=== PATIENT | male | born 1980 | race Caucasian/White ===

== ENCOUNTER 2022-06-06 21:30 | Emergency (ER) | payer OTHER ==
[~2022-06-06] VITALS: Ht 190.5 cm; Wt 118.2 kg
[2022-06-06 21:57] VITALS: TEMP 98.6
[2022-06-06 23:11] LABS: BASO # 0.1 K/mm3 (0.0-0.2); BASO % 0.6 % (0.0-2.0); EOS # 0.3 K/mm3 (0.0-0.7); EOS % 2.3 % (0.0-4.0); GRAN # 7.7 K/mm3 (1.4-6.5); HEMATOCRIT 45.3 % (42.0-52.0); HEMOGLOBIN 15.8 g/dl (13.5-18.0); LYMPH # 2.3 K/mm3 (1.2-3.4); LYMPH % 20.6 % (20.0-51.0); MEAN CELL VOLUME 87 fl (80.0-100.0); MEAN CORPUSCULAR HEMOGLOBIN 30 pg (27-31); MEAN CORPUSCULAR HGB CONC 35 g/dl (33.0-37.0); MEAN PLATELET VOLUME 9.7 fl (7.4-10.4); MONO # 0.9 K/mm3 (0.1-0.6); MONO % 8.1 % (1.7-9.3); PLATELET COUNT 246 K/mm3 (130-400); RED BLOOD COUNT 5.21 M/mm3 (4.20-5.60); REDCELL DISTRIBUTION WIDTH-CV 13.2 % (11.5-14.5)
[2022-06-06 23:32] LABS: ALBUMIN 4.1 gm/dL (3.5-5.0); BILIRUBIN,TOTAL 0.3 mg/dL (0.2-1.2); CALCIUM 8.9 mg/dL (8.4-10.2); CREATININE, serum 1.15 mg/dL (0.72-1.25); TOTAL PROTEIN 7.2 gm/dL (6.2-8.1)
[2022-06-06 23:37] LABS: TROPONIN-I 0.023 ng/mL (0.00-0.033)
[2022-06-06 23:52] VITALS: BP 143/98; PULSE 77
== END 2022-06-06 23:56 | disposition home or self-care (01) ==
LOC: COL.ER 21:30
PROVIDERS: Emergency Medicine
DX: I10 Essential (primary) hypertension (principal); T46.1X6A Underdosing of calcium-channel blockers, initial encounter; Z79.899 Other long term (current) drug therapy; Z91.128 Patient's intentional underdosing of medication regimen for other reason; Z28.310 Unvaccinated for COVID-19
CPT/HCPCS: J0360

== ENCOUNTER → 2022-08-01 | Outpatient (CLI) | payer OTHER | LOC: COL.RAD 07:09 | DX: R42 Dizziness and giddiness (principal) ==